=== PATIENT | male | born 1950 | race Hispanic/Latino ===

== ENCOUNTER 2023-03-21 11:43 | Emergency (ER) | payer OTHER ==
--- NOTE | 2023-03-21 12:24 | RAD REPORT ---
EXAM DESCRIPTION: CT - Thorax Wo Con - 03/21/2023 12:10 pm CLINICAL HISTORY: Chest pain status post fall COMPARISON: none TECHNIQUE: Computed axial tomography of the chest was obtained. Contrast was not requested. All CT scans are performed using dose optimization technique as appropriate and may include automated exposure control or mA/KV adjustment according to patient size. FINDINGS: The evaluation of mediastinum, salima and vessels is limited secondary to lack of IV contras t administration. Pulmonary contusion is not seen. No mediastinal hematoma. A pleural effusion is not present. No pericardial effusion. Multiple gallstones. Gallbladder wall thickening not seen IMPRESSION: No acute traumatic injury involving the chest noted
[2023-03-21 13:11] LABS: Absolute Lymphocytes (CBC) 1.3 K/uL (0.7-4.9); Hematocrit 40.9 % (39.6-49.0); Lymphocytes % 21.3 % (15.3-44.8); MCV 99.1 fL (80-100); MPV 8.5 fL (7.6-11.3); Platelets 178 thou/uL (152-406); RBC Red Blood Cell Count 4.13 M/uL (4.33-5.43)
[2023-03-21] MEDS ORDERED: DIAZEPAM 5 MG TABLET ONE (13:29)
[2023-03-21] MEDS ORDERED: ASPIRIN 81 MG CHEWABLE TABLET ONE (13:29)
[2023-03-21 13:33] LABS: Bilirubin Total 0.7 mg/dL (0.2-1.0); Potassium 3.8 mEq/L (3.5-5.1); Protein, Total 6.8 g/dL (6.4-8.2)
--- NOTE | 2023-03-21 13:53 | ER ---
Nurse's Notes [facility] Name: Roman Mckee Age: 72 yrs Sex: Male : 1950 Arrival Date: 03/21/2023 Time: 11:43 Bed 15 Private MD: Diagnosis: Costochondritis-s/p mechanical fall Presentation: 03/21 11:48 Chief complaint: Patient states: he fell last ,03/16/23, hitting his knees on ap3 concrete but denies hitting his head. patient reports that since that fall, he has had shortness of breath and pain on the left side of his chest. patient reports choking on some seeds yesterday, and it made the pain on the left side of his chest worse. Coronavirus screen: At this time, the client does not indicate any symptoms associated with coronavirus-19. Ebola Screen: No symptoms or risks identified at this time. Initial Sepsis Screen:. Initial Sepsis Screen: Does the patient meet any 2 criteria? No. Patient's initial sepsis screen is negative. Does the patient have a suspected source of infection? No. Patient's initial sepsis screen is negative. Risk Assessment: Do you want to hurt yourself or someone else? Patient reports no desire to harm self or others. Onset of symptoms was March 16, 2023. 11:48 Method Of Arrival: Ambulatory ap3 11:48 Acuity: SUZY 3 ap3 Triage Assessment: 11:51 General: Appears in no apparent distress. Behavior is calm, cooperative, appropriate ap3 for age. Pain: Complains of pain in anterior aspect of left upper chest Pain currently is 8 out of 10 on a pain scale. Pain began gradually, since 03/16/2023. Neuro: Level of Consciousness is awake, alert, obeys commands, Oriented to person, place, time, situation, Gait is steady, Speech is normal. Cardiovascular: Reports chest pain. Respiratory: Reports choking on seeds yesterday Airway is patent Respiratory effort is even, unlabored, Respiratory pattern is regular, symmetrical. Musculoskeletal: Reports fall 03/16/23. Historical: - Allergies: 11:50 No Known Allergies; ap3 - PMHx: 11:50 Hypertensive disorder; Diabetes mellitus; enlarged prostate; Hypercholesterolemia; ap3 - Immunization history:: Client reports receiving the 2nd dose of the Covid vaccine. - Social history:: Smoking status: Patient denies any tobacco usage or history of. Patient uses alcohol, occasionally. Screenin:52 Abuse screen: Denies threats or abuse. Nutritional screening: No deficits noted. ap3 Tuberculosis screening: No symptoms or risk factors identified. 14:49 [facility] ED Fall Risk Assessment (Adult) History of falling in the last 3 months, db including since admission No falls in past 3 months (0 pts) Confusion or Disorientation No (0 pts) Intoxicated or Sedated No (0 pts) Impaired Gait No (0 pts) Mobility Assist Device Used No (0 pt) Altered Elimination No (0 pt) Score/Fall Risk Level 0 - 2 = Low Risk Oriented to surroundings, Maintained a safe environment. Assessment: 13:18 Reassessment: Patient appears in no apparent distress at this time. Patient and/or db family updated on plan of care and expected duration. Pain level reassessed. Patient is alert, oriented x 3, equal unlabored respirations, skin warm/dry/pink. General: Appears in no apparent distress. comfortable, Behavior is calm, cooperative. Pain: Complains of pain in chest Pain does not radiate. Neuro: Level of Consciousness is awake, alert, obeys commands, Oriented to person, place, time, situation. 14:30 Reassessment: Patient appears in no apparent distress at this time. Patient and/or db family updated on plan of care and expected duration. Pain level reassessed. Patient is alert, oriented x 3, equal unlabored respirations, skin warm/dry/pink. Patient states feeling better. Patient states symptoms have improved. Pain: Denies pain. Vital Signs: 11:48 BP 145 / 70; Pulse 66; Resp 18; Temp 98.1; Pulse Ox 94% ; Weight 95.25 kg; Pain 8/10; ap3 13:30 BP 127 / 75; Pulse 60; Resp 16; Pulse Ox 95% on R/A; db 14:30 BP 119 / 83; Pulse 67; Resp 16; Pulse Ox 95% on R/A; db 11:48 Pain Scale: Adult ap3 ED Course: 11:46 Patient arrived in ED. im 11:47 Bethany Caraballo FNP-C [facility]. snw 11:47 Mohit Bee MD is Attending Physician. snw 11:50 Triage completed. ap3 11:52 Arm band placed on right wrist. ap3 11:53 Patient maintains SpO2 saturation greater than 95% on room air. ap3 12:10 CT Chest Wo Con In Process Unspecified. EDMS 12:57 Inserted saline lock: 22 gauge in right forearm, using aseptic technique. Blood ds4 collected. 13:16 Pamela Huang, RN is Primary Nurse. db 14:48 Patient has correct armband on for positive identification. Bed in low position. Call db light in reach. Side rails up X 1. Provided Education on: DISCHARGE . Client placed on continuous cardiac and pulse oximetry monitoring. NIBP monitoring applied. 14:48 No provider procedures requiring assistance completed. IV discontinued, intact, db bleeding controlled, No redness/swelling at site. Administered Medications: 13:18 Drug: Aspirin PO Chewable Tablet 324 mg Route: PO; db 14:16 Follow up: Response: No adverse reaction db 13:21 Drug: Diazepam PO 10 mg Route: PO; db 14:16 Follow up: Response: No adverse reaction db Medication: 14:49 VIS not applicable for this client. db Outcome: 13:53 Discharge ordered by . snmildred 14:36 Instructed on Demonstrated understanding of instructions, incentive spirometry db 14:49 Discharged to home ambulatory, via ambulance, with family. db 14:49 Condition: stable 14:49 Prescriptions given X 2. 14:49 Patient left the ED. db Signatures: Dispatcher [employer] EDMS Bethany Caraballo, NON FERROUS MATERIAL HANDLER-C NON FERROUS MATERIAL HANDLER-Chrisw Justo Mota ds4 Pearl Capellan RN RN ap3 Pamela Huang, RN RN db Mallorie Aden
--- NOTE | 2023-03-21 13:53 | EDPHYS ---
Physician Documentation [facility] Name: Roman Mckee Age: 72 yrs Sex: Male : 1950 Arrival Date: 03/21/2023 Time: 11:43 Bed 15 Private MD: ED Physician Mohit Bee HPI: 03/21 12:14 This 72 yrs old Male presents to ER via Ambulatory with complaints of Chest snw Pain, Fall Injury. 12:14 Onset: The symptoms/episode began/occurred acutely. snw Historical: - Allergies: 11:50 No Known Allergies; ap3 - PMHx: 11:50 Hypertensive disorder; Diabetes mellitus; enlarged prostate; Hypercholesterolemia; ap3 - Immunization history:: Client reports receiving the 2nd dose of the Covid vaccine. - Social history:: Smoking status: Patient denies any tobacco usage or history of. Patient uses alcohol, occasionally. ROS: 12:13 Constitutional: Negative for fever, chills, and weight loss, Eyes: Negative for injury, snw pain, redness, and discharge, ENT: Negative for injury, pain, and discharge, Neck: Negative for injury, pain, and swelling, Abdomen/GI: Negative for abdominal pain, nausea, vomiting, diarrhea, and constipation, Back: Negative for injury and pain, : Negative for injury, bleeding, discharge, and swelling, MS/Extremity: Negative for injury and deformity, Skin: Negative for injury, rash, and discoloration, Neuro: Negative for headache, weakness, numbness, tingling, and seizure, Psych: Negative for depression, anxiety, suicide ideation, homicidal ideation, and hallucinations. 12:13 Cardiovascular: Positive for chest pain, with movement, of the left clavicle and anterior aspect of left upper chest. 12:13 Respiratory: Positive for shortness of breath, at rest. Exam: 12:08 Constitutional: This is a well developed, well nourished patient who is awake, alert, snw and in no acute distress. Head/Face: Normocephalic, atraumatic. Eyes: Pupils equal round and reactive to light, extra-ocular motions intact. Lids and lashes normal. Conjunctiva and sclera are non-icteric and not injected. Cornea within normal limits. Periorbital areas with no swelling, redness, or edema. ENT: Nares patent. No nasal discharge, no septal abnormalities noted. Tympanic membranes are normal and external auditory canals are clear. Oropharynx with no redness, swelling, or masses, exudates, or evidence of obstruction, uvula midline. Mucous membranes moist. Neck: Trachea midline, no thyromegaly or masses palpated, and no cervical lymphadenopathy. Supple, full range of motion without nuchal rigidity, or vertebral point tenderness. No Meningismus. Cardiovascular: Regular rate and rhythm with a normal S1 and S2. No gallops, murmurs, or rubs. Normal PMI, no JVD. No pulse deficits. Abdomen/GI: Soft, non-tender, with normal bowel sounds. No distension or tympany. No guarding or rebound. No evidence of tenderness throughout. Back: No spinal tenderness. No costovertebral tenderness. Full range of motion. Skin: Warm, dry with normal turgor. Normal color with no rashes, no lesions, and no evidence of cellulitis. MS/ Extremity: Pulses equal, no cyanosis. Neurovascular intact. Full, normal range of motion. Neuro: Awake and alert, GCS 15, oriented to person, place, time, and situation. Cranial nerves II-XII grossly intact. Motor strength 5/5 in all extremities. Sensory grossly intact. Cerebellar exam normal. Normal gait. Psych: Awake, alert, with orientation to person, place and time. Behavior, mood, and affect are within normal limits. 12:08 Respiratory: the patient does not display signs of respiratory distress, Respirations: normal, shallow respirations. Vital Signs: 11:48 BP 145 / 70; Pulse 66; Resp 18; Temp 98.1; Pulse Ox 94% ; Weight 95.25 kg; Pain 8/10; ap3 13:30 BP 127 / 75; Pulse 60; Resp 16; Pulse Ox 95% on R/A; db 14:30 BP 119 / 83; Pulse 67; Resp 16; Pulse Ox 95% on R/A; db 11:48 Pain Scale: Adult ap3 MDM: 11:55 Patient medically screened. snw 13:47 Differential diagnosis: Blunt Chest Trauma Chest Wall Contusion Chest Wall Injury snw Pneumothorax Pulmonary Contusion Rib Fracture. ECG:. Data reviewed: vital signs, nurses notes. I considered the following discharge prescriptions or medication management in the emergency department Medications were administered in the Emergency Department. See MAR. Counseling: I had a detailed discussion with the patient and/or guardian regarding: the historical points, exam findings, and any diagnostic results supporting the discharge/admit diagnosis, the presence of at least one elevated blood pressure reading (>120/80) during this emergency department visit, lab results, radiology results, the need for outpatient follow up, for definitive care, to return to the emergency department if symptoms worsen or persist or if there are any questions or concerns that arise at home. Response to treatment: the patient's symptoms have markedly improved after treatment. Special discussion: Based on the patient's history, exam, and Dx evaluation, there is no indication for emergent intervention or inpatient Tx. It is understood by the patient/guardian that if the Sx's persist or worsen they need to return immediately for re-evaluation. I have referred the patient to see his PCP for further evaluation of high blood pressure. Based on the history and exam findings, there is no indication for further emergent testing or inpatient evaluation. I discussed with the patient/guardian the need to see the territory account representative for further evaluation of the symptoms. I discussed with the patient/guardian the need to see the primary care provider for further evaluation of the symptoms. 03/21 11:54 Order name: Troponin High Sensitivity; Complete Time: 13:36 snw 03/21 11:59 Order name: BNP; Complete Time: 13:36 snw 03/21 11:59 Order name: CBC with Diff; Complete Time: 13:17 snw 03/21 11:59 Order name: CMP; Complete Time: 13:36 snw 03/21 11:54 Order name: CT Chest Wo Con; Complete Time: 12:31 snw 03/21 11:59 Order name: INCENTIVE SPIROMETRY w 03/21 13:37 Order name: EKG; Complete Time: 13:37 snw 03/21 13:37 Order name: EKG - Nurse/Tech; Complete Time: 13:50 snw EC:50 Rate is 59 beats/min. Rhythm is regular. QRS [place] is Normal. [place] interval is normal. QRS snw interval is normal. QT interval is normal. Clinical impression: NSR w/ Non-specific ST/T Changes. Administered Medications: 13:18 Drug: Aspirin PO Chewable Tablet 324 mg Route: PO; db 14:16 Follow up: Response: No adverse reaction db 13:21 Drug: Diazepam PO 10 mg Route: PO; db 14:16 Follow up: Response: No adverse reaction db Disposition: 16:31 Co-signature as Attending Physician, Mohit Bee MD I reviewed the patient's care rn provided by the Advanced Practice Provider and agree with the diagnosis and treatment plan. Disposition Summary: 03/21/23 13:53 Discharge Ordered Location: Home snw Condition: Stable snw Diagnosis - Costochondritis - s/p mechanical fall snw Followup: snw - With: Emergency Department - When: As needed - Reason: Worsening of condition Followup: snw - With: Private Physician - When: 2 - 3 days - Reason: Recheck today's complaints, Continuance of care, Re-evaluation by your physician Discharge Instructions: - Discharge Summary Sheet snw - Costochondritis snw - How to Use an Incentive Spirometer snw - Aspirin and Your Heart snw - Incentive Spirometer Record snw Forms: - Medication Reconciliation Form snw - Thank You Letter snw - Antibiotic Education snw - Prescription Opioid Use snw - Patient Portal Instructions snw - Leadership Thank You Letter snw Prescriptions: - orphenadrine citrate 100 mg Oral Tablet Sustained Release - take 1 tablet by ORAL route 2 times per day As needed; 20 tablet; Refills: 0, snw Product Selection Permitted - Pepcid 20 mg Oral Tablet - take 1 tablet by ORAL route once daily; 20 tablet; Refills: 0, Product snw Selection Permitted Signatures: Dispatcher [employer] Bethany Burton FNP-C [employer]-Csnw Mohit Bee MD MD rn Prokisch, Amanda RN RN ap3 Pamela Huang RN RN db
[2023-03-21 15:02] VITALS: TEMP 98.1
[2023-03-21 15:07] VITALS: O2SAT 95
[2023-03-21 15:13] VITALS: BP 119/83
--- NOTE | 2023-03-23 17:31 | EKG ---
Test Date: 2023-03-21 Test Time: 13:46:42 Grips: CAITLIN MEASUREMENT RESULTS: Intervals: Rate: 59 MN: 170 QRSD: 106 QT: 436 QTc: 431 [place]: P: 59 MN: 170 QRS: -34 T: 42 INTERPRETIVE STATEMENTS: Sinus bradycardia Left axis deviation Lateral infarct, age undetermined Abnormal ECG No previous ECG available for comparison Electronically Signed On 03-23-23 17:28:29 CDT by Mynor Schaefer
== END 2023-03-21 14:49 | disposition home or self-care (01) ==
LOC: ER 11:43
DX: M94.0 Chondrocostal junction syndrome [Tietze] (principal); W18.30XA Fall on same level, unspecified, initial encounter
CPT/HCPCS: 36415; 71250; 80053; 83880; 84484; 85025; 93005; 99284